=== PATIENT | male | born 1970 | race Caucasian/White ===

== ENCOUNTER 2016-08-28 20:57 | Emergency (ER) | payer OTHER ==
--- NOTE | 2016-08-28 22:10 | DIAGNOSTIC IMAGING REPORT ---
PROCEDURE: CT ABDOMEN/PELVIS W/O CONTRAST INDICATION: Left flank pain. TECHNIQUE: Noncontrast axial images were obtained of the entire abdomen and pelvis with sagittal and coronal reformations. COMPARISON: None. FINDINGS: ABDOMEN: Lung bases are clear. Normal heart size. Normal kidneys without any evidence of urinary calculi. No hydronephrosis or perinephric edema. Liver, gallbladder, pancreas, spleen and adrenal glands are normal. Normal abdominal aorta. Mild infiltration at the base of the mesentery. Moderate stool. PELVIS: Normal appendix. Mildly enlarged prostate. Normal bladder. There is no pelvic mass, inflammatory changes or free fluid. No suspicious osseous lesions. IMPRESSION: 1. No evidence of urolithiasis 2. Moderate stool 3. Results discussed with Dr. Ferraro All CT scans at this facility use dose modulation, iterative reconstruction, and/or weight-based dosing when appropriate to reduce radiation dose to as low as reasonably achievable.
--- NOTE | 2016-08-28 22:44 | ED NURSING NOTES ---
Clinical Report - Nurses [facility] [address] [place] [address] 08/28/2016 21:00 Patient: CECI DOMINIQUE TRIAGE Triage time 21:09. Acuity: LEVEL 4. Chief Complaint: BACK PAIN. 21:17. Alert. SEPSIS SCREEN: Sepsis Screen. Negative (no infection suspected/documented). ONELIA COMA SCORE: Onelia Coma Scale: 15- eyes open spontaneously (4); best verbal response- oriented x 4 (5); best motor response- obeys commands (6). --21:17 Ascencion Joseph R.N. 21:09 08/28/16. BP: 149/69. HR: 62. RR: 15. O2 saturation: 100% on room air. Temp: 97.9 F (oral). Pain level now: 04/02. --21:17 Ascencion Joseph R.N. Weight: 80.2 kg stated. Height/Length: 68 inches Per Patient. BMI: 26.9. --21:13 Ascencion Joseph R.N. Medications Omeprazole Oral 20 mg, daily. --21:10 Ascencion Joseph R.N. Hydrochlorothiazide Oral 25 mg, daily. --21:10 Ascencion Joseph R.N. Micardis Oral 40 mg, daily. --21:10 Ascencion Joseph R.N. Terbinafine HCl Oral (Tablet 250 mg) 1 tablet, daily. --21:11 Ascencion Joseph R.N. Medication/allergy information source: the patient. --21:17 Ascencion Joseph R.N. Allergies No Known Drug Allergy. --21:11 Ascencion Joseph R.N. History Arrived by private vehicle. Historian: patient. Unaccompanied. Onset. (tuesday). ( Patient reports left flank/back pain that started tuesday). No history of recent trauma. PAST MEDICAL HX: Tetanus status: up-to-date. Immunizations: up-to-date. SOCIAL HX: Never smoker. Occasional alcohol use. No drug use. No infectious disease exposure. ABUSE ASSESSMENT: No report of abuse. FALL RISK ASSESSMENT: Fall risk assessment completed. No fall risk identified. NUTRITIONAL RISK ASSESSMENT: The nutritional risk assessment revealed no deficiencies. FUNCTIONAL ASSESSMENT: Functional assessment: no impairments noted. LEARNING NEEDS ASSESSMENT: The learning needs assessment revealed no barriers. SKIN INTEGRITY ASSESSMENT: Skin integrity risk assessment completed. No skin integrity risk identified. --21:17 Ascencion Joseph R.N. PROBLEMS: Gastroesophageal Reflux Disease. Hypertension. Headache. --21:11 Ascencion Joseph R.N. ADDITIONAL SURGERIES: Pylonydal cyst removal. Rt knee. --21:11 Ascencion Joseph R.N. Interventions ID band on patient. To treatment room. --21:17 Ascencion Joseph R.N. PHYSICAL ASSESSMENT 21:12. Ambulatory to room. GENERAL / NEURO / PSYCH: Alert. Oriented X 4. RESPIRATORY: Respirations not labored. EXTREMITIES: Sensation intact in extremities. ROM of extremities within normal limits. --21:12 Ascencion Joseph R.N. NURSING PROGRESS NOTES Head of bed elevated. Two patient identifiers checked. Call light placed in reach. Bed placed in lowest position. Brakes of bed on. Patient ready for evaluation- chart flagged. --21:13 Ascencion Joseph R.N. 21:19 Patient unable to provide urine now - given cup of ice water. --21:20 Ascencion Joseph R.N. 21:42. Patient transported to CT by stretcher with tech. --21:48 Ascencion Joseph R.N. 21:49. Patient walked back to ED from CT with tech. --21:49 Ascencion Joseph R.N. 21:50 Patient to restroom to collect urine sample. --21:50 Ascencion Joseph R.N. 21:54 08/28/2016 Site #1 started via IV in the right antecubital space with an 20g angiocath, with aseptic technique and good blood return; one attempt. Blood drawn: rainbow set. Labeled in the presence of the patient and sent to the lab. Saline lock flushed with 10 mL saline. --22:00 Ascencion Joseph R.N. 21:45. Patient ID band checked for patient name and birthdate: patient confirmed. Clean catch urine collected with return of yellow-colored clear urine; sample sent to lab for urinalysis. Specimen labeled in the presence of the patient. --22:02 Ascencion Joseph R.N. 22:51. The patient is calm and resting quietly. GENERAL / NEURO / PSYCH: Alert. Oriented X 4. RESPIRATORY: No respiratory distress. SKIN: Skin is warm and dry. Skin color within normal limits. --22:57 Ascencion Joseph R.N. DISPOSITION / DISCHARGE 22:51 08/28/2016 Site #1 removed upon discharge. Catheter intact. Bandage applied. --22:53 Ascencion Joseph R.N. Departure time: 22:55. Condition at departure: stable. No learning barriers present. Discharge instructions provided and reviewed with the patient. Reviewed medication(s) side effects, precautions, dosing and course information. Prescription(s) given to the patient. Patient verbalized understanding. Written instructions provided in Bermudian. The patient was discharged home and unaccompanied at time of discharge. He left the Emergency Department ambulatory and via private vehicle. Patient driving. FALL RISK ASSESSMENT: Fall risk assessment completed. No fall risk identified. --22:55 Ascencion Joseph R.N. 22:50 08/28/16. BP: 123/75. HR: 54. RR: 14. O2 saturation: 100%. Pain level now: 04/02. --22:55 Ascencion Joseph R.N. Locked/Released at 08/28/2016 22:58 by Ascencion Joseph R.N.
--- NOTE | 2016-08-28 22:44 | ED ORDER SUMMARY ---
..... Patient: CECI DOMINIQUE OrderSheet [facility] VisitID: [id number] [address] [place] [address] 46y, M Registration Date/Time: 08/28/2016 ORDER SHEET Weight: 80.2 kg (stated) Allergies: No Known Drug Allergy GENERAL ORDERS: CT Abd/Pel wo Cont Urgent (21:27 08/28/2016 Lázaro Pabon) (Ack 21:40 CHagerty ER Agronomy Location Manager) (21:48 RFay) CBC w Diff Urgent (21:28 08/28/2016 Láazro Pabon) (Ack 21:40 Sandeep ER Agronomy Location Manager) (21:59 JQuivey R.N.) CMP Urgent (21:28 08/28/2016 Lázaro Pabon) (Ack 21:40 Sandeep ER Agronomy Location Manager) (21:59 JQuivey R.N.) UA-Culture if indicated Urgent (21:28 08/28/2016 Lázaro Pabon) (Ack 21:40 Sandeep ER Agronomy Location Manager) (21:59 JQuivey R.N.) Lipase Urgent (21:28 08/28/2016 Lázaro Pabon) (Ack 21:40 CHagerty ER Agronomy Location Manager) (22:00 JQuivey R.N.) MEDICATION ORDERS: IV FLUIDS: IV Saline Lock (21:28 08/28/2016 Lázaro Pabon) (Ack 21:45 JQuivey R.N.) (22:00 JQuivey R.N.) ORDER SHEET NOTES: [Electronically signed by Ascencion Joseph R.N. (22:58 08/28/2016)] [Electronically signed by Micheal Ferraro Dr. (05:29 08/31/2016)] [Electronically locked/signed by Ascencion Joseph R.N. (22:58 08/28/2016)]
--- NOTE | 2016-08-28 22:44 | ED ORDER SUMMARY ---
..... Patient: CECI DOMINIQUE OrderSheet [facility] VisitID: [id number] [address] [place] [address] 46y, M Registration Date/Time: 08/28/2016 ORDER SHEET Weight: 80.2 kg (stated) Allergies: No Known Drug Allergy GENERAL ORDERS: CT Abd/Pel wo Cont Urgent (21:27 08/28/2016 Lázaro Pabon) (Ack 21:40 CHagerty ER Ethylene Plant Operator) (21:48 RFay) CBC w Diff Urgent (21:28 08/28/2016 Lázaro Pabon) (Ack 21:40 Sandeep ER Ethylene Plant Operator) (21:59 JQuivey R.N.) CMP Urgent (21:28 08/28/2016 Lázaro Pabon) (Ack 21:40 Sandeep ER Ethylene Plant Operator) (21:59 JQuivey R.N.) UA-Culture if indicated Urgent (21:28 08/28/2016 Lázaro Pabon) (Ack 21:40 Sandeep ER Ethylene Plant Operator) (21:59 JQuivey R.N.) Lipase Urgent (21:28 08/28/2016 Lázaro Pabon) (Ack 21:40 CHagerty ER Ethylene Plant Operator) (22:00 JQuivey R.N.) MEDICATION ORDERS: IV FLUIDS: IV Saline Lock (21:28 08/28/2016 Lázaro Pabon) (Ack 21:45 JQuivey R.N.) (22:00 JQuivey R.N.) ORDER SHEET NOTES: [Electronically signed by Ascencion Joseph R.N. (22:58 08/28/2016)] [Electronically signed by Micheal Ferraro Dr. (05:29 08/31/2016)] [Electronically locked/signed by Ascencion Joseph R.N. (22:58 08/28/2016)]
--- NOTE | 2016-08-28 22:44 | ED CLINICAL REPORT ---
Clinical Report - Physicians/Mid Levels [facility] [address] [place] [address] 08/28/2016 21:00 Patient: CECI DOMINIQUE Time Seen: 2119; initial patient contact. Arrived- By private vehicle. Historian- patient. HISTORY OF PRESENT ILLNESS Chief Complaint: FLANK PAIN and left. At its maximum, severity described as moderate. When seen in the E.D., severity described as moderate. Modifying factors- (worse with pushing on it. better with rest.). It is described as sharp. No radiation. This started past several days and is still present. It was abrupt in onset and has been intermittent and waxing/waning but is not gone now. No nausea, loss of appetite, vomiting or diarrhea. No additional abdominal pain. No recent travel. Similar symptoms previously: None. Recent medical care: Not recently seen/assessed. REVIEW OF SYSTEMS No black stools, hematemesis, difficulty with urination, pain with urination or bloody stools. No chest pain, difficulty breathing or skin rash. All systems otherwise negative, except as recorded above. PAST HISTORY See nurses notes. Medications: Terbinafine HCl Oral (Tablet 250 mg) 1 tablet, daily. Micardis Oral 40 mg, daily. Hydrochlorothiazide Oral 25 mg, daily. Omeprazole Oral 20 mg, daily. Allergies: No Known Drug Allergy. SOCIAL HISTORY Never smoker. Occasional alcohol use. No drug use. No recent travel. Is a local resident. ADDITIONAL NOTES The nursing notes have been reviewed. PHYSICAL EXAM Vital Signs: 08/28/2016 21:09 BP: 149/69. HR: 62. RR: 15. O2 saturation: 100%. Temp: 97.9 F. Pain level now: 2/10. Oxygen saturation normal. Appearance: Alert. Oriented X3. No acute distress. Eyes: Pupils equal, round and reactive to light. Eyes normal inspection. ENT: Ears normal. Nose normal. Pharynx normal. Neck: Normal inspection. Neck supple. CVS: Normal heart rate and rhythm. Heart sounds normal. Pulses normal. Respiratory: No respiratory distress. Breath sounds normal. Chest nontender. No rales, rhonchi or wheezes. Abdomen: Soft and nontender. Bowel sounds normal. No mass. Back: No CVA tenderness. Skin: Skin warm and dry. Normal skin color. No rash. Normal skin turgor. Extremities: Extremities exhibit normal ROM. No lower extremity edema. Neuro: No motor deficit. No sensory deficit. LABS, X-RAYS, AND EKG Abdominal CT: PROCEDURE: CT ABDOMEN/PELVIS W/O CONTRAST INDICATION: Left flank pain. TECHNIQUE: Noncontrast axial images were obtained of the entire abdomen and pelvis with sagittal and coronal reformations. COMPARISON: None. FINDINGS: ABDOMEN: Lung bases are clear. Normal heart size. Normal kidneys without any evidence of urinary calculi. No hydronephrosis or perinephric edema. Liver, gallbladder, pancreas, spleen and adrenal glands are normal. Normal abdominal aorta. Mild infiltration at the base of the mesentery. Moderate stool. PELVIS: Normal appendix. Mildly enlarged prostate. Normal bladder. There is no pelvic mass, inflammatory changes or free fluid. No suspicious osseous lesions. IMPRESSION: 1. No evidence of urolithiasis 2. Moderate stool. Laboratory Tests: UA-Culture if indicated: (HEATHER: 08/28/2016 21:50) ( MsgRcvd 08/28/2016 22:14) Final results Test Result Flag Units (Reference) URINE COLOR YELLOW URINE APPEARANCE CLEAR URINE GLUCOSE NEGATIVE (NEGATIVE) URINE BILIRUBIN NEGATIVE (NEGATIVE) URINE KETONE NEGATIVE (NEGATIVE) URINE SPECIFIC GRAVITY 1.015 (1.010-1.030) URINE PH 6.0 (5.0-8.0) URINE PROTEIN NEGATIVE (NEGATIVE) URINE UROBILINOGEN 0.2 EU/dL (0.2-1.0) URINE NITRITE NEGATIVE (NEGATIVE) URINE BLOOD NEGATIVE (NEGATIVE) URINE LEUK ESTERASE NEGATIVE (NEGATIVE) URINE RBC 0-1 rbc/hpf (0-1) URINE WBC 0-1 wbc/hpf (0-1) URINE EPITHELIAL CELLS 0-1 EPI/hpf (0-5) URINE BACTERIA NONE SEEN (NONE SEEN) URINE COMMENT CULT NOT INDICATED URINE CULTURES ARE SET-UP BASED ON THE FOLLOWING CRITERIA:POSITIVE NITRITEPOSITIVE LEUKOCYTE ESTERASEGREATER THAN 10 WHITE BLOOD CELLSMODERATE (2+) OR GREATER BACTERIA CBC w Diff: (HEATHER: 08/28/2016 21:54) ( MsgRcvd 08/28/2016 22:04) Final results Test Result Flag Units (Reference) WHITE BLOOD COUNT 7.5 K/uL (4.5-11.5) RED BLOOD COUNT 4.81 M/uL (4.50-5.90) HEMOGLOBIN 14.4 gm/dL (13.5-17.5) HEMATOCRIT 42.8 % (41.0-53.0) MEAN CELL VOLUME 89 fL (80-100) MEAN CORPUSCULAR HGB 30 pg (26-34) MEAN CORPUSCULAR HGB CONC 34 g/dL (31-37) RED CELL DISTRIBUTION WIDTH 12.6 % (11.6-14.8) PLATELET COUNT 158 K/uL (150-400) NEUTROPHIL % 65.2 % (50-75) LYMPH % 26.9 % (25-40) MONO % 5.2 % (3-14) EOSINOPHIL % 2.1 % (0-4) BASOPHIL % 0.6 % (0-2) CMP: (HEATHER: 08/28/2016 21:54) ( MsgRcvd 08/28/2016 22:23) Final results Test Result Flag Units (Reference) GLUCOSE 95 mg/dL (70-110) BUN 19 H mg/dL (7-18) CREATININE 1.0 mg/dL (0.6-1.3) Estimated GFR >60 mL/min Estimated GFR- >60 mL/min Note: Persistent reduction over 3 months in eGFR<60 mL/min/1.73 m2 defines CKD. Patients with eGFR values>=60 mL/min/1.73 m2 may also have CKD if evidence ofpersistent proteinuria. Additional information may be foundat www.kidney.org. SODIUM 143 mmol/L (136-145) POTASSIUM 3.8 mmol/L (3.5-5.1) CHLORIDE 105 mmol/L (98-107) CARBON DIOXIDE 29 mmol/L (21-32) CALCIUM 8.9 mg/dL (8.5-10.1) TOTAL PROTEIN 7.1 g/dL (6.4-8.2) ALBUMIN 4.3 g/dL (3.3-5.0) BILIRUBIN, TOTAL 0.6 mg/dL (0.0-1.0) ALKALINE PHOSPHATASE 60 U/L (46-116) AST (SGOT) 26 U/L (15-37) ALT (SGPT) 34 U/L (12-78) LIPASE 194 U/L (73-393) . PROGRESS AND PROCEDURES Course of Care: the patient is a 46-year-old male With past medical history presenting for evaluation of left flank pain. At this time differential diagnosis includes renal colic versus urinary tract infection versus bowel obstruction. Patient is agreeable to the treatment plan after discussing the risks and benefits of CT scan. Laboratory studies have been ordered. Pain medication as been offered and declined by patient. The patient's workup was remarkable for the findings above. No acute abdominal findings on CT scan. Patient with moderate amount of stool burden. Patient's laboratory studies including urinalysis are unremarkable. I discussion with the patient in regards his workup here in emergency department including diagnosis, home care, follow-up, and return precautions. All questions have been answered. The patient expressed understanding of these instructions and was agreeable to them. Specifically also had discussion with the patient in regards to acute appendicitis precautions. Disposition: Discharged. Condition: good. CLINICAL IMPRESSION Acute abdominal pain. (left flank). Constipation (acute). INSTRUCTIONS Warnings: GENERAL WARNINGS: Return or contact your physician immediately if your condition worsens or changes unexpectedly, if not improving as expected, or if other problems arise. SPECIFICALLY, return if you develop pain, fever, vomiting, the inability to keep fluids down, blood in vomitus, blood in diarrhea, fainting or lightheadedness. Your Current Medications: CONTINUE TAKING THE FOLLOWING MEDICATIONS: Hydrochlorothiazide Oral : 25 mg daily. Micardis Oral : 40 mg daily. Omeprazole Oral : 20 mg daily. Terbinafine HCl Oral : Tablet 250 mg, 1 tablet daily. Prescription Medications: Miralax: take 1 heaping tablespoon mixed in 8 ounces juice every day as needed for constipation. Dispense twenty-six (26) ounce bottle. No refills. Substitution is permissible. OTC Medications: Colace 100 mg capsules (available over the counter): take 1 capsule orally and twice daily as needed for constipation. No refill. Substitution is permissible. (disp 30 caps) Follow-up: Return to the emergency department as needed. Follow up with your doctor in three days. Reason for referral: recheck today's concerns. Summary of care provided to patient via paper. Screening today revealed the patient's blood pressure to be in the normal range. The patient should follow up with a primary care provider for blood pressure management. Understanding of the discharge instructions verbalized by patient. (Electronically signed by Micheal Ferraro Dr. 08/31/2016 5:29)
--- NOTE | 2016-08-31 05:29 | ED MED RECONCILIATION SUMMARY ---
Patient: CECI DOMINIQUE Medication Reconciliation Report [facility] VisitID: [id number] [address] [place] [address] 46y, M Registration Date/Time: 08/28/2016 Weight: 80.2 kg Height/Length: 68 in. BMI: 26.9 ALLERGIES: No Known Drug Allergy The patient's Home Medications are listed below: CONTINUE TAKING THE FOLLOWING MEDICATIONS: Hydrochlorothiazide Oral 25 mg, daily Micardis Oral 40 mg, daily Omeprazole Oral 20 mg, daily Terbinafine HCl Oral (250 mg) 1 tablet, daily The source(s) of the original Home Medication information: patient The following Medications were given to the patient in the Emergency Department: None. The following Medications were prescribed to the patient: Colace 100 mg capsules (available over the counter): take 1 capsule orally and twice daily as needed for constipation. No refill. Substitution is permissible.(disp 30 caps) -- Micheal Ferraro Dr. Miralax: take 1 heaping tablespoon mixed in 8 ounces juice every day as needed for constipation. Dispense twenty-six (26) ounce bottle. No refills. Substitution is permissible. -- Micheal Ferraro Dr.
--- NOTE | 2016-08-31 05:29 | ED MED RECONCILIATION SUMMARY ---
Patient: CECI DOMINIQUE Medication Reconciliation Report [facility] VisitID: [id number] [address] [place] [address] 46y, M Registration Date/Time: 08/28/2016 Weight: 80.2 kg Height/Length: 68 in. BMI: 26.9 ALLERGIES: No Known Drug Allergy The patient's Home Medications are listed below: CONTINUE TAKING THE FOLLOWING MEDICATIONS: Hydrochlorothiazide Oral 25 mg, daily Micardis Oral 40 mg, daily Omeprazole Oral 20 mg, daily Terbinafine HCl Oral (250 mg) 1 tablet, daily The source(s) of the original Home Medication information: patient The following Medications were given to the patient in the Emergency Department: None. The following Medications were prescribed to the patient: Colace 100 mg capsules (available over the counter): take 1 capsule orally and twice daily as needed for constipation. No refill. Substitution is permissible.(disp 30 caps) -- Micheal Ferraro Dr. Miralax: take 1 heaping tablespoon mixed in 8 ounces juice every day as needed for constipation. Dispense twenty-six (26) ounce bottle. No refills. Substitution is permissible. -- Micheal Ferraro Dr.
--- NOTE | 2016-08-31 05:29 | ED DISCHARGE INSTRUCTIONS ---
Patient: CECI DOMINIQUE General Instructions [facility] VisitID: [id number] [place] [address] 46y, M Registration Date/Time: 08/28/2016 Acute abdominal pain. (left flank). Constipation (acute). INSTRUCTIONS Warnings: GENERAL WARNINGS: Return or contact your physician immediately if your condition worsens or changes unexpectedly, if not improving as expected, or if other problems arise. SPECIFICALLY, return if you develop pain, fever, vomiting, the inability to keep fluids down, blood in vomitus, blood in diarrhea, fainting or lightheadedness. Your Current Medications: CONTINUE TAKING THE FOLLOWING MEDICATIONS: Hydrochlorothiazide Oral : 25 mg daily. Micardis Oral : 40 mg daily. Omeprazole Oral : 20 mg daily. Terbinafine HCl Oral : Tablet 250 mg, 1 tablet daily. Prescription Medications: Miralax: take 1 heaping tablespoon mixed in 8 ounces juice every day as needed for constipation. Dispense twenty-six (26) ounce bottle. No refills. Substitution is permissible. OTC Medications: Colace 100 mg capsules (available over the counter): take 1 capsule orally and twice daily as needed for constipation. No refill. Substitution is permissible. (disp 30 caps) Follow-up: Return to the emergency department as needed. Follow up with your doctor in three days. Reason for referral: recheck today's concerns. Summary of care provided to patient via paper. Screening today revealed the patient's blood pressure to be in the normal range. The patient should follow up with a primary care provider for blood pressure management. Understanding of the discharge instructions verbalized by patient. ADDITIONAL INFORMATION Abdominal Pain,Uncertain Cause [Male] Based on your visit today, the exact cause of your abdominalpain is not clear. Your exam and tests do not indicate a dangerous cause at this time. However, the signs of a serious problem may take more time to appear. Although your evaluation was reassuring today, sometimes early in the course of many conditions, exam and lab tests can appear normal. Therefore, it is important for you to watch for any new symptoms or worsening of your condition. Causes It may not be obvious what caused your symptoms. Pay attention to things that do seem to make your symptoms worse or better and discuss this with your doctor when you follow up. Diagnosis The evaluation of abdominal pain in the emergency department may onlyrequire an exam by the doctor or it may include blood, urine or imaging studies, depending on many factors. Sometimes exams and tests can identify a cause but in many cases, a clear cause is not found. Further testing at follow up visits may help to suggest a clear diagnosis. Home Care Rest as much as possible until your next exam. Try to avoid any medications (unless otherwise directed by your doctor), foods, activities, or other factors that you may have contributed to your symptoms. Try to eat foods that you know that you have tolerated well in the past. Certain diets may be recommended for some conditions that cause abdominal pain. However, since the cause of your symptoms may not be clear, discuss your diet more with your primary care provider or specialist for further recommendations. Eating several small meals per day as opposed to 2 or 3 larger meals may help. Monitor closely for anything that may make your symptoms worse or better. Pay close attention to symptoms below that may indicate worsening of your condition. Follow Up and Precautions See your doctoras instructed or sooneror if your symptoms are not improving.In some cases, you may need more testing. When to Seek Medical Attention Contact your doctor or see medical attention ifany of the following occur: Pain is becoming worse You are unable to take your medications due to excessive vomiting Swelling of the abdomen Fever of 100.4F (38C) or higher, or as directed by your health care provider Blood in vomit or bowel movements (dark red or black color) Jaundice (yellow color of eyes and skin) New onset of weakness, dizziness or fainting New onset of chest, arm, back, neck or jaw pain Constipation (Adult) Constipation is bowel movements that are less frequent than usual. Stools often become very hard and difficult to pass. This may lead to abdominal pain and bloating. It may also cause painful bowel movements. Constipation may be due to a diet thats low in fiber. Some medications, especially pain medications, can also cause it. Constipation may be treated with enemas, suppositories, laxatives or stool softeners. Your doctor will advise you which will work best for you. Follow the advice below to help avoid this problem in the future. Home Care Medication: Take any medicines as directed. Some laxatives are safe only for occasional use. Others can be taken on a regular basis. Talk to your doctor or pharmacist if you have questions. General Care: Prescription pain medications can cause constipation. If you are prescribed pain medications, ask the doctor whether you should also take a stool softener. A diet high in fiber with plenty of fluids helps to maintain regular, soft bowel movements. The following foods are good sources of dietary fiber: Cereals and breads: Whole grain cereal with bran, oatmeal, rolled oats, whole grain breads Fruits: All fruits (fresh and dried), raisins, prunes, apricots, berries, figs Vegetables: Any fresh vegetables, especially peas, broccoli, brussels sprouts, winter squash, green beans, cauliflower, corona beans, carrots Other: Popcorn, brown rice Drink plenty of water when you increase the amount of fiber you eat. Follow Up with your doctor or return to this facility if symptoms do not improve in the next few days. You may require further tests or a referral to a specialist. Get Prompt Medical Attention if any of the following occur: Fever over 100.4F (38C) Failure to resume normal bowel movements Increasing abdominal or back pain Nausea or vomiting Abdominal swelling Blood in the stool Weakness, dizziness or fainting Unexpected vaginal bleeding Docusate Sodium Oral tablet What is this medicine? DOCUSATE (doc CUE sayt) is stool softener. It helps prevent constipation and straining or discomfort associated with hard or dry stools. How should I use this medicine? Take this medicine by mouth with a glass of water. Follow the directions on the label. Take your doses at regular intervals. Do not take your medicine more often than directed. Talk to your electrical appliance repairer regarding the use of this medicine in children. While this medicine may be prescribed for children as young as 2 years for selected conditions, precautions do apply. What side effects may I notice from receiving this medicine? Side effects that you should report to your doctor or health clinical care coordinator as soon as possible: allergic reactions like skin rash, itching or hives, swelling of the face, lips, or tongue Side effects that usually do not require medical attention (report to your doctor or health clinical care coordinator if they continue or are bothersome): diarrhea stomach cramps throat irritation What may interact with this medicine? mineral oil What if I miss a dose? If you miss a dose, take it as soon as you can. If it is almost time for your next dose, take only that dose. Do not take double or extra doses. Where should I keep my medicine? Keep out of the reach of children. Store at room temperature between 15 and 30 degrees C (59 and 86 degrees F). Throw away any unused medicine after the expiration date. What should I tell my health care provider before I take this medicine? They need to know if you have any of these conditions: nausea or vomiting severe constipation stomach pain sudden change in bowel habit lasting more than 2 weeks an unusual or allergic reaction to docusate, other medicines, foods, dyes, or preservatives or trying to get breast-feeding What should I watch for while using this medicine? Do not use for more than one week without advice from your doctor or health clinical care coordinator. If your constipation returns, check with your doctor or health clinical care coordinator. Drink plenty of water while taking this medicine. Drinking water helps decrease constipation. Stop using this medicine and contact your doctor or health clinical care coordinator if you experience any rectal bleeding or do not have a bowel movement after use. These could be signs of a more serious condition. You have been given the following additional information: Abdominal Pain, Unknown Cause, (Male) Constipation (Adult) Docusate Sodium Oral tablet (Electronically signed by Micheal Ferraro Dr. 08/31/2016 5:29)
--- NOTE | 2016-08-31 05:29 | ED DISCHARGE INSTRUCTIONS ---
Patient: CECI DOMINIQUE General Instructions [facility] VisitID: [id number] [place] [address] 46y, M Registration Date/Time: 08/28/2016 Acute abdominal pain. (left flank). Constipation (acute). INSTRUCTIONS Warnings: GENERAL WARNINGS: Return or contact your physician immediately if your condition worsens or changes unexpectedly, if not improving as expected, or if other problems arise. SPECIFICALLY, return if you develop pain, fever, vomiting, the inability to keep fluids down, blood in vomitus, blood in diarrhea, fainting or lightheadedness. Your Current Medications: CONTINUE TAKING THE FOLLOWING MEDICATIONS: Hydrochlorothiazide Oral : 25 mg daily. Micardis Oral : 40 mg daily. Omeprazole Oral : 20 mg daily. Terbinafine HCl Oral : Tablet 250 mg, 1 tablet daily. Prescription Medications: Miralax: take 1 heaping tablespoon mixed in 8 ounces juice every day as needed for constipation. Dispense twenty-six (26) ounce bottle. No refills. Substitution is permissible. OTC Medications: Colace 100 mg capsules (available over the counter): take 1 capsule orally and twice daily as needed for constipation. No refill. Substitution is permissible. (disp 30 caps) Follow-up: Return to the emergency department as needed. Follow up with your doctor in three days. Reason for referral: recheck today's concerns. Summary of care provided to patient via paper. Screening today revealed the patient's blood pressure to be in the normal range. The patient should follow up with a primary care provider for blood pressure management. Understanding of the discharge instructions verbalized by patient. ADDITIONAL INFORMATION Abdominal Pain,Uncertain Cause [Male] Based on your visit today, the exact cause of your abdominalpain is not clear. Your exam and tests do not indicate a dangerous cause at this time. However, the signs of a serious problem may take more time to appear. Although your evaluation was reassuring today, sometimes early in the course of many conditions, exam and lab tests can appear normal. Therefore, it is important for you to watch for any new symptoms or worsening of your condition. Causes It may not be obvious what caused your symptoms. Pay attention to things that do seem to make your symptoms worse or better and discuss this with your doctor when you follow up. Diagnosis The evaluation of abdominal pain in the emergency department may onlyrequire an exam by the doctor or it may include blood, urine or imaging studies, depending on many factors. Sometimes exams and tests can identify a cause but in many cases, a clear cause is not found. Further testing at follow up visits may help to suggest a clear diagnosis. Home Care Rest as much as possible until your next exam. Try to avoid any medications (unless otherwise directed by your doctor), foods, activities, or other factors that you may have contributed to your symptoms. Try to eat foods that you know that you have tolerated well in the past. Certain diets may be recommended for some conditions that cause abdominal pain. However, since the cause of your symptoms may not be clear, discuss your diet more with your primary care provider or specialist for further recommendations. Eating several small meals per day as opposed to 2 or 3 larger meals may help. Monitor closely for anything that may make your symptoms worse or better. Pay close attention to symptoms below that may indicate worsening of your condition. Follow Up and Precautions See your doctoras instructed or sooneror if your symptoms are not improving.In some cases, you may need more testing. When to Seek Medical Attention Contact your doctor or see medical attention ifany of the following occur: Pain is becoming worse You are unable to take your medications due to excessive vomiting Swelling of the abdomen Fever of 100.4F (38C) or higher, or as directed by your health care provider Blood in vomit or bowel movements (dark red or black color) Jaundice (yellow color of eyes and skin) New onset of weakness, dizziness or fainting New onset of chest, arm, back, neck or jaw pain Constipation (Adult) Constipation is bowel movements that are less frequent than usual. Stools often become very hard and difficult to pass. This may lead to abdominal pain and bloating. It may also cause painful bowel movements. Constipation may be due to a diet thats low in fiber. Some medications, especially pain medications, can also cause it. Constipation may be treated with enemas, suppositories, laxatives or stool softeners. Your doctor will advise you which will work best for you. Follow the advice below to help avoid this problem in the future. Home Care Medication: Take any medicines as directed. Some laxatives are safe only for occasional use. Others can be taken on a regular basis. Talk to your doctor or pharmacist if you have questions. General Care: Prescription pain medications can cause constipation. If you are prescribed pain medications, ask the doctor whether you should also take a stool softener. A diet high in fiber with plenty of fluids helps to maintain regular, soft bowel movements. The following foods are good sources of dietary fiber: Cereals and breads: Whole grain cereal with bran, oatmeal, rolled oats, whole grain breads Fruits: All fruits (fresh and dried), raisins, prunes, apricots, berries, figs Vegetables: Any fresh vegetables, especially peas, broccoli, brussels sprouts, winter squash, green beans, cauliflower, corona beans, carrots Other: Popcorn, brown rice Drink plenty of water when you increase the amount of fiber you eat. Follow Up with your doctor or return to this facility if symptoms do not improve in the next few days. You may require further tests or a referral to a specialist. Get Prompt Medical Attention if any of the following occur: Fever over 100.4F (38C) Failure to resume normal bowel movements Increasing abdominal or back pain Nausea or vomiting Abdominal swelling Blood in the stool Weakness, dizziness or fainting Unexpected vaginal bleeding Docusate Sodium Oral tablet What is this medicine? DOCUSATE (doc CUE sayt) is stool softener. It helps prevent constipation and straining or discomfort associated with hard or dry stools. How should I use this medicine? Take this medicine by mouth with a glass of water. Follow the directions on the label. Take your doses at regular intervals. Do not take your medicine more often than directed. Talk to your high pressure boiler operator regarding the use of this medicine in children. While this medicine may be prescribed for children as young as 2 years for selected conditions, precautions do apply. What side effects may I notice from receiving this medicine? Side effects that you should report to your doctor or health daycare provider as soon as possible: allergic reactions like skin rash, itching or hives, swelling of the face, lips, or tongue Side effects that usually do not require medical attention (report to your doctor or health daycare provider if they continue or are bothersome): diarrhea stomach cramps throat irritation What may interact with this medicine? mineral oil What if I miss a dose? If you miss a dose, take it as soon as you can. If it is almost time for your next dose, take only that dose. Do not take double or extra doses. Where should I keep my medicine? Keep out of the reach of children. Store at room temperature between 15 and 30 degrees C (59 and 86 degrees F). Throw away any unused medicine after the expiration date. What should I tell my health care provider before I take this medicine? They need to know if you have any of these conditions: nausea or vomiting severe constipation stomach pain sudden change in bowel habit lasting more than 2 weeks an unusual or allergic reaction to docusate, other medicines, foods, dyes, or preservatives or trying to get breast-feeding What should I watch for while using this medicine? Do not use for more than one week without advice from your doctor or health daycare provider. If your constipation returns, check with your doctor or health daycare provider. Drink plenty of water while taking this medicine. Drinking water helps decrease constipation. Stop using this medicine and contact your doctor or health daycare provider if you experience any rectal bleeding or do not have a bowel movement after use. These could be signs of a more serious condition. You have been given the following additional information: Abdominal Pain, Unknown Cause, (Male) Constipation (Adult) Docusate Sodium Oral tablet (Electronically signed by Micheal Ferraro Dr. 08/31/2016 5:29)
--- NOTE | 2016-08-31 05:29 | ED MAR SUMMARY ---
..... Medication Administration Record [facility] [address] [place] [address] Patient: CECI DOMINIQUE Visit ID: [id number] 46y, M Weight: 80.2 kg Height/Length: 68 in BMI: 26.9 ALLERGIES: No Known Drug Allergy
--- NOTE | 2016-08-31 05:29 | ED MAR SUMMARY ---
..... Medication Administration Record [facility] [address] [place] [address] Patient: CECI DOMINIQUE Visit ID: [id number] 46y, M Weight: 80.2 kg Height/Length: 68 in BMI: 26.9 ALLERGIES: No Known Drug Allergy
== END 2016-08-28 22:55 | disposition home or self-care (01) ==
LOC: ED SRH 20:57
DX: K59.00 Constipation, unspecified (principal); R10.32 Left lower quadrant pain; Z79.899 Other long term (current) drug therapy
CPT/HCPCS: 90004; 90100; 92235; 95059